=== PATIENT | male | born 1985 | race American Indian/Alaskan Native ===

== ENCOUNTER 2020-10-02 07:12 | Emergency (ER) | payer SELFPAY ==
[2020-10-02 07:22] VITALS: BP 137/87
--- NOTE | 2020-10-02 08:27 | Ultrasound Report ---
ULTRASOUND SCROTUM INDICATION: testicular pain and swelling. COMPARISON None available. FINDINGS -- RIGHT TESTIS: Size: 4.2 x 2.1 x 3.0 cm. Echotexture: Normal. Color Doppler Flow: Normal. Lesions: None. EPIDIDYMIS: Size: Normal. Echotexture: Normal. Color Doppler Flow: Normal. Lesions: 6 mm epididym al head cyst Hydrocele: None. Varicocele: None. Additional Findings: None. FINDINGS -- LEFT TESTIS: Size: 3.8 x 2.2 x 3.1 cm. Echotexture: Normal. Color Doppler Flow: Normal. Lesions: None. EPIDIDYMIS: Size: Normal. Echotexture: Normal. Color Doppler Flow: Increased Lesions: 6 mm cyst Hydrocele: None. Varicocele: None. Additional Findings: None. IMPRESSION: 1. Left epididymitis. No torsion 2. Bilateral 6 mm epididymal cysts Signer Name: Pollo Li MD Signed: 10/02/2020 8:23 AM Workstation Name: [id number]
[2020-10-02] MEDS ORDERED: LIDOCAINE-MPF (1%) 10 MG/1 ML VIAL 5 ML INFILTRATI ONE (08:33)
[2020-10-02] MEDS ORDERED: AZITHROMYCIN 250 MG TAB PO ONE (08:33)
[2020-10-02 09:28] LABS: Bilirubin,Urine NEG (Negative); Blood,Urine NEG (Negative); Color,Urine Yellow (Yellow); Mucus,Urine FEW /HPF; Protein,Urine <15 mg/dL mg/dL (Negative); Urobilinogen,Urine < 2.0 mg/dL (<2.0)
--- NOTE | 2020-10-02 09:51 | Emergency Department Report ---
ED Male HPI - General Chief complaint: Urogenital-Male Stated complaint: LEFT TESTICLE IS SWOLLEN Time Seen by Provider: 10/02/20 07:19 Source: patient Mode of arrival: Ambulatory Limitations: No Limitations - History of Present Illness Initial comments: This is a 35-year-old male nontoxic, well nourished in appearance, no acute signs of distress presents to the ED with c/o of penile discharge with dysuria and left testicular pain with some swelling times several days. Patient stated that he has a gonorrhea chlamydia test that was done several days ago but is pending for results. Patient otherwise denies any trauma or injuries. Patient stated has some hematuria but has resolved with last episode noticed 2 days ago. Patient denies any penile ulcers or lesions. Patient denies any nausea, vomiting, chest pain, shortness of breathe, fever, chills, headache, back pain, numbness, tingling, stiff neck. Patient denies any other urinary symptoms. Patient denies any allergies or PMH. MD Complaint: testicle pain, testicle swelling -: week(s) Location: left testicle Radiation: none Severity: mild Severity scale (0 -10): 3 Quality: aching Consistency: constant Improves with: none Worsens with: none discharge, swelling, blood in urine, dysuria. denies: mass, rash, urinary retention, fever, nausea/vomiting, incontinence - Related Data Sexually active: Yes Previous Rx's Medication Instructions Recorded Last Taken Type Sulfamethoxazole/Trimethoprim 1 each PO BID #20 tablet 10/02/20 Unknown Rx [Bactrim DS TAB] Allergies Allergy/AdvReac Type Severity Reaction Status Date / Time No Known Allergies Allergy Verified 10/02/20 08:36 ED Review of Systems ROS: Stated complaint: LEFT TESTICLE IS SWOLLEN Other details as noted in HPI Comment: All other systems reviewed and negative Constitutional: denies: chills, fever Eyes: denies: eye pain, eye discharge, vision change ENT: denies: ear pain, throat pain Respiratory: denies: cough, shortness of breath, wheezing Cardiovascular: denies: chest pain, palpitations Endocrine: no symptoms reported Gastrointestinal: denies: abdominal pain, nausea, diarrhea Genitourinary: dysuria, hematuria, testicular pain. denies: urgency, frequency, discharge, testicular mass Musculoskeletal: denies: back pain, joint swelling, arthralgia Skin: denies: rash, lesions Neurological: denies: headache, weakness, paresthesias Psychiatric: denies: anxiety, depression Hematological/Lymphatic: denies: easy bleeding, easy bruising ED Past Medical Hx - Past Medical History Previous Medical History?: No - Surgical History Past Surgical History?: Yes Additional Surgical History: Left knee ACL reconstruction - Social History Smoking Status: Never Smoker Substance Use Type: Alcohol - Medications Home Medications: Home Medications Medication Instructions Recorded Confirmed Last Taken Type Sulfamethoxazole/Trimethoprim 1 each PO BID #20 tablet 10/02/20 Unknown Rx [Bactrim DS TAB] ED Physical Exam - General Limitations: No Limitations General appearance: alert, in no apparent distress - Head Head exam: Present: atraumatic, normocephalic - Eye Eye exam: Present: normal appearance - Neck Neck exam: Present: normal inspection, full ROM. Absent: tenderness, meningismus, lymphadenopathy - Respiratory Respiratory exam: Absent: respiratory distress - Cardiovascular Cardiovascular Exam: Present: regular rate - GI/Abdominal GI/Abdominal exam: Present: soft, normal bowel sounds. Absent: distended, tenderness, guarding, rebound, rigid, diminished bowel sounds - exam: Present: testicular tenderness, other (Outsole Rounder Lilia RN present during exam). Absent: urethral discharge, scrotal swelling, vertical testicular lie External exam: Present: normal external exam, other (Outsole Rounder Lilia RN present during exam). Absent: erythema, swelling, lesions, lacerations, ecchymosis, bleeding - Extremities Exam Extremities exam: Present: normal inspection, full ROM - Back Exam Back exam: Present: normal inspection, full ROM. Absent: tenderness, CVA tenderness (R), CVA tenderness (L), muscle spasm, paraspinal tenderness, vertebral tenderness, rash noted - Neurological Exam Neurological exam: Present: alert, oriented X3, normal gait - Psychiatric Psychiatric exam: Present: normal affect, normal mood - Skin Skin exam: Present: warm, dry, intact, normal color. Absent: rash ED Course Vital Signs 10/02/20 07:17 Temperature 98.5 F Pulse Rate 77 Respiratory 18 Rate Blood Pressure 137/87 O2 Sat by Pulse 99 Oximetry - Reevaluation(s) Reevaluation #1: 10/02/20 09:52 Patient is speaking in full sentences with no signs of distress noted. ED Medical Decision Making - Lab Data Lab Results 10/02/20 Range/Units 08:38 Urine Color Yellow (Yellow) Urine Turbidity Clear (Clear) Urine pH 5.0 (5.0-7.0) Ur Specific [place] 1.018 (1.003-1.030) Urine Protein <15 mg/dl (Negative) mg/dL Urine Glucose (UA) Neg (Negative) mg/dL Urine Ketones Neg (Negative) mg/dL Urine Blood Neg (Negative) Urine Nitrite Neg (Negative) Urine Bilirubin Neg (Negative) Urine Urobilinogen < 2.0 (<2.0) mg/dL Ur Leukocyte Esterase Neg (Negative) Urine WBC (Auto) 2.0 (0.0-6.0) /HPF Urine RBC (Auto) 5.0 (0.0-6.0) /HPF U Epithel Cells (Auto) 1.0 (0-13.0) /HPF Urine Mucus Few /HPF - Radiology Data [facility] [address] [place] [address] Ultrasound Report Signed Patient: DULCE IVDALES MR#: [id number] 9 : 1985 Acct:[id number] Age/Sex: 35 / M ADM Date: 10/02/20 Loc: ED Attending Dr: Ordering Physician: CINDY DUONG NP Date of Service: 10/02/20 Procedure(s): US testicular doppler comp Accession Number(s): [id number] cc: CINDY DUONG NP ULTRASOUND SCROTUM INDICATION: testicular pain and swelling. COMPARISON None available. FINDINGS -- RIGHT TESTIS: Size: 4.2 x 2.1 x 3.0 cm. Echotexture: Normal. Color Doppler Flow: Normal. Lesions: None. EPIDIDYMIS: Size: Normal. Echotexture: Normal. Color Doppler Flow: Normal. Lesions: 6 mm epididymal head cyst Hydrocele: None. Varicocele: None. Additional Findings: None. FINDINGS -- LEFT TESTIS: Size: 3.8 x 2.2 x 3.1 cm. Echotexture: Normal. Color Doppler Flow: Normal. Lesions: None. EPIDIDYMIS: Size: Normal. Echotexture: Normal. Color Doppler Flow: Increased Lesions: 6 mm cyst Hydrocele: None. Varicocele: None. Additional Findings: None. IMPRESSION: 1. Left epididymitis. No torsion 2. Bilateral 6 mm epididymal cysts Signer Name: Pollo Li MD Signed: 10/02/2020 8:23 AM Workstation Name: [id number] Transcribed By: TL Dictated By: Pollo Li MD Electronically Authenticated By: Pollo Li MD Signed Date/Time: 10/02/20822 DD/ 9 TD/TT: - Medical Decision Making 35-year-old male that presents with epididymitis with possible STD. Patient is stable and was examined by me. Patient is notified of the uterine results and the ultrasound report with no questions noted by the patient. Patient did receive Rocephin and azithromycin and patient will be discharged with Bactrim. Patient was instructed to follow-up with a primary care doctor in 3-5 days or if symptoms worsen and continue return to emergency room as soon as possible. At time of discharge, the patient does not seem toxic or ill in appearance. No acute signs of distress noted. Patient agrees to discharge treatment plan of care. No further questions noted by the patient. Critical care attestation.: If time is entered above; I have spent that time in minutes in the direct care of this critically ill patient, excluding procedure time. ED Disposition Clinical Impression: Epididymitis, Possible exposure to STD Disposition: DC-01 TO HOME OR SELFCARE Is pt being admited?: No Does the pt Need Aspirin: No Condition: Stable Instructions: Epididymitis (ED), Epididymitis, Safe Sex Additional Instructions: Follow-up with a primary care doctor in 3-5 days or if symptoms worsen and continue return to emergency room as soon as possible. Prescriptions: Sulfamethoxazole/Trimethoprim [Bactrim DS TAB] 1 each PO BID #20 tablet Referrals: KIRBY GOODEN MD [Primary Care Provider] - 3-5 Days AMISH MERRILL MD [Staff Physician] - 3-5 Days Forms: Work/School Release Form(ED) Time of Disposition: 09:56
== END 2020-10-02 10:15 | disposition home or self-care (01) ==
LOC: ED 07:12
DX: N45.1 Epididymitis (principal); Z20.2 Contact with and (suspected) exposure to infections with a predominantly sexual mode of transmission; Z72.89 Other problems related to lifestyle; Z98.890 Other specified postprocedural states; Z79.899 Other long term (current) drug therapy
CPT/HCPCS: 81001; 93975; 96372; 99284; J0696